=== PATIENT | male | born 1945 | race African-American/Black ===

== ENCOUNTER 2022-09-29 12:56 | Observation (INO) | payer MEDICARE, SELFPAY ==
[2022-09-29] VITALS (13 sets, daily range): BP systolic 111–155; BP diastolic 58–89; PULSE 82–94; RESP 13–18; TEMP 36.5; O2SAT 98–100; BMI 28.5
--- NOTE | ~2022-09-29 | CT_ITS ---
EXAMINATION: CT brain wo con DATE: 09/29/2022 15:54 INDICATION: Syncope. TECHNIQUE: Computed tomography (CT) of the head was performed without intravenous contrast. The mA wa s adjusted according to patient size. Iterative reconstruction technique was employed. The dose-lengt h product was 681.00 mGy-cm. COMPARISON: None FINDINGS: There is diffuse brain volume loss. There is no intracranial hemorrhage, acute infarction, or abnormal intracranial mass lesion. The ventricles are normal in size. There are likely changes of right ocular lens replacement surgery. There is mild mucosal thickening in the paranasal sinuses. The mastoid air cells are normal. IMPRESSION: 1. Normal aging brain. Reviewed, dictated and finalized at location A. ATIONS RESEARCH DIRECTOR IMPRESSION: 1. Normal aging brain.
--- NOTE | ~2022-09-29 | CT_ITS ---
EXAMINATION: CT abdomen pelvis w con DATE: 09/29/2022 14:46 INDICATION: Epigastric abdominal pain and tenderness. TECHNIQUE: Computed tomography (CT) of the abdomen and pelvis was performed with 100 mL Omnipaque 350 intravenous contrast. Automated exposure control and iterative reconstruction technique were employe d. The dose-length product was 493.73 mGy-cm. COMPARISON: CT abdomen and pelvis 12/17/2015 FINDINGS: The visualized portions of the lung bases demonstrate mild atelectasis and mild chronic parviz g disease. There are calcified pleural plaques on the right. The heart size is normal. There is a tra ce pericardial effusion. There is mild bilateral gynecomastia. There is a small sliding hiatal hernia . The liver and gallbladder are normal. There is a small residual spleen in left upper quadrant. 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 There is a 9 mm cystic lesion at the surgical margin w ithout change, likely benign. The adrenal glands are normal. There is cortical thinning of the kidney s. There is a 7 mm cyst of left kidney. There is a 2 mm stone in left kidney. There is a chronic meta llic foreign body in left perinephric space. The prostate is moderately enlarged. There are no dilate d loops of bowel. The appendix is normal. There are no pathologically enlarged lymph nodes. There is no free intraperitoneal fluid. Again seen is subcutaneous scarring in anterior abdominal wall. There is a chronic compression fracture of L2. IMPRESSION: 1. Small sliding hiatal hernia. Reviewed, dictated and finalized at location A. BOSS
--- NOTE | ~2022-09-29 | NM_ITS ---
EXAMINATION: NM bulmaro stress w perfusion DATE: 09/30/2022 13:21 INDICATION: Syncope TECHNIQUE: Rest images were obtained following intravenous administration of 9.7 mCi Tc99m tetrofosmi n (Myoview). The patient was infused intravenously with Lexiscan (Regadenoson). Then, 30 mCi Tc99m te trofosmin (Myoview) was administered intravenously, and stress images were obtained. Data was reconst ructed into short axis and horizontal and vertical long axis SPECT images. Gated SPECT images were al so obtained. COMPARISON: None. FINDINGS: There is no definite reversible or fixed perfusion abnormality to suggest ischemia or infar ction. There is normal left ventricular chamber size, wall motion and ejection fraction. Left ventr icular ejection fraction measures >70%. IMPRESSION: 1. Normal myocardial perfusion at rest and during stress. 2. Left ventricular ejection fraction measuring >70%. Reviewed, dictated and finalized at location A. SCOUT
--- NOTE | 2022-09-29 13:00 | ECG_ITS ---
Measurements Intervals [place] Rate: 84 P: 11 VT: 148 QRS: 18 QRSD: 132 T: -3 QT: 378 QTc: 449 Interpretive Statements SINUS RHYTHM INTRAVENTRICULAR CONDUCTION DELAY BORDERLINE ST-T WAVE ABNORMALITY- INF/LAT LEADS BASELINE ARTIFACT- I, III, AVR, AVL, AVF, V3-V5 BORDERLINE ECG NO PREVIOUS ECG AVAILABLE FOR COMPARISON Electronically Signed On 09-29-2022 14:39:20 OXYGEN SYSTEM TESTER by Renan Schuster D.O.
--- NOTE | 2022-09-29 13:27 | ED.SYNCOPE ---
HPI - Syncope General Chief Complaint: Syncope <MARY Prater Last Filed: 09/29/22 17:05> Stated Complaint: NEAR SYNCOPAL EVENT <MARY Prater Last Filed: 09/29/22 17:05> Time Seen by Provider: 09/29/22 13:01 <MARY Prater Last Filed: 09/29/22 17:05> History of Present Illness HPI narrative: 77-year-old male with a history of diabetes, hypertension, here for evaluation of abdominal pain, nausea over the past day. Patient states that he was at [facility] with his granddaughter, started to complain of a stomachache after eating a piece of chocolate candy. The granddaughter called EMS who evaluated the patient, reportedly his blood pressure was slightly low and he was given a bolus of fluids and brought to the ED. BP noted to be 115/64 upon arrival. He denies loss of consciousness, syncope, diarrhea, constipation, fevers or chills. He was in his usual state of health this morning. Spoke with Simran (patient's granddaughter who witnessed the event) on the phone. She has a very different story, states that her grandfather was feeling unwell while walking around [facility], stating that he needs to sit down. Patient sat down on the grocery belt, and then leaned backwards on the belt. Simran states that he was unresponsive for several seconds with a blank stare and stopped breathing . Patient denies this, states that he just did not eat enough this morning. A&O x 4. <MARY Prater Last Filed: 09/29/22 17:05> Related Data Allergies/Adverse Reactions: Allergies Allergy/AdvReac Type Severity Reaction Status Date / Time No Known Allergies Allergy Verified 02/28/22 08:12 <MARY Prater Last Filed: 09/29/22 17:05> Review of Systems Review of Systems: Gen: Denies fevers or chills Eyes: Denies eye pain or visual change ENT: Denies congestion Respiratory: Denies shortness of breath or cough CV: Denies chest pain or palpitations GI: reports abdominal pain, nausea, vomiting denies burning, urgency, frequency or hematuria Musculoskeletal: Denies back pain or muscle pain Neuro: Denies numbness, tingling, weakness or focal weakness Skin: Denies rash Except as documented, all other systems reviewed and negative <Tisha Mojica PA-C - Last Filed: 09/29/22 17:05> [facility] Past Medical History Medical History: Medical History BMI 29.0-29.9,adult Essential (primary) hypertension Mixed hyperlipidemia Tinea cruris Type 2 diabetes mellitus without complications <Tisha Mojica PA-C - Last Filed: 09/29/22 17:05> Family History Family History: Family History Mother Family history of coronary artery disease <Tisha Mojica PA-C - Last Filed: 09/29/22 17:05> Social History Social History: Social History Smoking status: Never smoker Alcohol intake: current <Tisha Mojica PA-C - Last Filed: 09/29/22 17:05> Exam Narrative: APPEARANCE: Well appearing, no pain in distress, well-nourished. Head: Normocephalic and atraumatic. EYES: PERRLA/EOMI, conjunctivae clear NOSE: No nasal drainage EARS: External ear normal in appearance THROAT: Oropharynx is clear. Mucous membranes are moist. NECK: Supple. No adenopathy, no masses. RESPIRATORY: Airway patent, respirations nonlabored. Clear to auscultation bilaterally, no rales, rhonchi, wheezing. CARDIOVASCULAR: Regular rate and rhythm without murmurs, rubs, or gallops. ABDOMINAL: Normoactive bowel sounds. Soft, nontender, nondistended. No rebound tenderness or guarding. MUSCULOSKELETAL: Extremities are warm and well-perfused. Moves all extremities well. No edema. NEURO: Normal speech. No focal neurologic deficits. SKIN: Skin is warm and dry. No rashes. PSYCHIATRIC: Normal
[2022-09-29] MEDS: FAMOTIDINE 20 MG/2 ML VIAL IV PUSH (13:59)
[2022-09-29] MEDS: ONDANSETRON INJ 4 MG/2 ML VIAL IV PUSH (13:59)
[2022-09-29 14:16] LABS: Basophils Percent Auto 0.3 % (0.2-1.2); Eosinophils Absolute Auto 0.1 K/mm3 (0-0.3); Eosinophils Percent Auto 0.5 % (0-4.4); Hematocrit 40.3 % (42.0-52.0); Hemoglobin 12.7 g/dL (14.0-18.0); Immature Granulocyte Absolute 0.07 K/mm3 (0.00-0.031); Immature Granulocyte Percent A 0.6 % (0-0.5); Lymphocytes Absolute Auto 2.91 K/mm3 (0.9-3.2); Lymphocytes Percent Auto 26.3 % (18.3-44.2); Mean Corpuscular HGB Conc 31.5 g/dl (32-36); Mean Corpuscular Hemoglobin 27.5 pg (26-34); Mean Corpuscular Volume 87.4 fl (80-100); Mean Platelet Volume 11.2 fl (7.4-10.4); Monocytes Absolute Auto 0.8 K/mm3 (0.1-0.6); Monocytes Percent Auto 7.4 % (2.6-8.5); Neutrophils Absolute Auto 7.2 K/mm3 (1.3-6.7); Neutrophils Percent Auto 64.9 % (45.5-73.1); Platelet Count Result 389 k/mm3 (150-375); Red Blood Count 4.61 M/mm3 (4.6-6.20); White Blood Count 11.1 K/mm3 (4.5-10.0)
[2022-09-29 14:27] LABS: Alanine Aminotransferase 18 U/L (6-50); Albumin Level 4.6 g/dL (3.5-5.1); Alkaline Phosphatase 114 U/L (38-126); Anion Gap 13 mmol/L (8-16); Aspartate Amino Transferase 19 U/L (17-59); Bilirubin,Total 0.3 mg/dL (0.2-1.3); Blood Urea Nitrogen 25 mg/dL (9-20); Calcium 9.3 mg/dL (8.4-10.2); Carbon Dioxide 23 mmol/L (22-30); Chloride 103 mmol/L (98-107); Estimated CRCL calculation 32 ml/min; Estimated Glomerular Filt Rate 48; Glucose 105 mg/dL (65-110); Lipase 148 U/L (23-300); Potassium 3.9 mmol/L (3.4-5.0); Sodium 139 mmol/L (137-145)
[2022-09-29] MEDS: SODIUM CHLORIDE 0.9% IV 1,000 ML 999 ML IV CONT (15:13)
[2022-09-29 16:54] LABS: Troponin I 0.098 ng/mL (0.000-0.034)
[2022-09-29 18:00] LABS: Troponin I 0.256 ng/mL (0.000-0.034)
[2022-09-29 18:20] LABS: Influenza A QL RT-PCR Negative (Negative); Influenza B QL RT-PCR Negative (Negative); SARS-CoV-2 RNA PCR Negative
--- NOTE | 2022-09-29 19:25 | PC.NURSE ---
This patient, Amadeo Oliva, was admitted to IMU Room 206-01. Patient/family oriented to hospital policies and general routines including ID bracelet, bed and alarms, visiting hours, pain management, procedures, bathroom and other care routines, personal items, smoking policy, room service/diet, and visiting hours. Information on how to activate the Rapid Response Team has been discussed. Patient/Family are encouraged to report perceived risks to care and to ask questions if they do not understand what they are told or what they should do.
[2022-09-29 20:04] LABS: Glucose Point of Care 361 mg/dl (65-105)
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
--- NOTE | 2022-09-29 21:43 | ADMGEN ---
This patient, Amadeo Oliva, was admitted to IMU Room 206-01 at 1925. Patient/family oriented to hospital policies and general routines including ID bracelet, bed and alarms, visiting hours, pain management, procedures, bathroom and other care routines, personal items, smoking policy, room service/diet, and visiting hours. Information on how to activate the Rapid Response Team has been discussed. Patient/Family are encouraged to report perceived risks to care and to ask questions if they do not understand what they are told or what they should do.
[2022-09-30] VITALS (8 sets, daily range): BP systolic 111–121; BP diastolic 60–81; PULSE 18–82; RESP 14–18; TEMP 36–36.6; O2SAT 98–100
--- NOTE | 2022-09-30 | ECHO_ITS ---
Patient Info Name: Amadeo Oliva Age: 77 years : 1945 Gender: Male Ht: 68 in Wt: 187 lbs BSA: 2.04 m2 HR: 74 bpm BP: 116 / 62 mmHg Technical Quality: Good Exam Date: 09/30/2022 9:19 AM Exam Location: [facility] Patient Status: Outpatient Admit Date: 09/29/2022 Staff Ordering Physician: Suha English NP Enologist: Nahun Rosen RDCS, RT Attending Provider: Elpidio Spangler MD Referring Physician: Tameka DRAKE; Exam Type: CA echo doppler color flow Study Info Indications R55 - Syncope and collapse Complete two-dimensional, color flow and Doppler transthoracic echocardiogram is performed. Strain analysis performed. Summary 1. Complete two-dimensional, color flow and Doppler transthoracic echocardiogram is performed. 2. Left ventricular chamber dimension is normal. 3. Left ventricular systolic function is normal, estimated at 65-70%. 4. There is moderate concentric increased left ventricular wall thickness. 5. The left ventricular diastolic function is grade I diastolic dysfunction. 6. E/e' 9 is minimally elevated. 7. Global longitudinal strain is abnormal at -14.1%. 8. There is trace mitral valve regurgitation. Left Ventricle E/e' 9 is minimally elevated. Global longitudinal strain is abnormal at -14.1%. Left ventricular chamber dimension is normal. Left ventricular systolic function is normal, estimated at 65-70%. There is moderate concentric increased left ventricular wall thickness. The left ventricular diastolic function is grade I diastolic dysfunction. Right Ventricle Right ventricular systolic function is normal and with normal TAPSE 2.8 cm. Right ventricular chamber dimension is normal. Left Atria Left atrial chamber dimension is normal. Right Atria Right atrial chamber dimension is normal. Aortic Valve The aortic valve is trileaflet. There is no aortic valve stenosis. There is no aortic valve regurgitation. Pulmonic Valve There is no pulmonic regurgitation. Mitral Valve There is no mitral valve stenosis. There is trace mitral valve regurgitation. Tricuspid Valve There is no tricuspid valve regurgitation. Pericardium/Pleural There is no pericardial effusion. Inferior Vena Cava Normal inferior vena cava with >50% collapse upon inspiration consistent with normal right atrial pressure, 5 mmHg. Aorta The aortic root size at the sinus of Valsalva is normal. Left Ventricular Outflow Tract Name Value Normal LVOT 2D LVOT Diameter 2.0 cm LVOT Doppler LVOT Peak Gradient 4 mmHg LVOT Mean Gradient 2 mmHg LVOT VTI 19 cm LVOT VTI/AV VTI Ratio 0.7 LVOT Stroke Volume 59 ml Mitral Valve Name Value Normal MV Doppler MV Decel Jasper 289 cm/s2
[2022-09-30 00:38] LABS: Troponin I 0.374 ng/mL (0.000-0.034)
[2022-09-30 05:13] LABS: Basophils Percent Auto 0.4 % (0.2-1.2); Eosinophils Absolute Auto 0.1 K/mm3 (0-0.3); Hematocrit 34.7 % (42.0-52.0); Hemoglobin 11.4 g/dL (14.0-18.0); Immature Granulocyte Absolute 0.02 K/mm3 (0.00-0.031); Immature Granulocyte Percent A 0.2 % (0-0.5); Lymphocytes Absolute Auto 4.05 K/mm3 (0.9-3.2); Lymphocytes Percent Auto 48.6 % (18.3-44.2); Mean Corpuscular HGB Conc 32.9 g/dl (32-36); Mean Corpuscular Hemoglobin 27.9 pg (26-34); Mean Corpuscular Volume 84.8 fl (80-100); Mean Platelet Volume 11.5 fl (7.4-10.4); Monocytes Absolute Auto 0.6 K/mm3 (0.1-0.6); Monocytes Percent Auto 7.7 % (2.6-8.5); Neutrophils Absolute Auto 3.5 K/mm3 (1.3-6.7); Neutrophils Percent Auto 42.1 % (45.5-73.1); Platelet Count Result 373 k/mm3 (150-375); Red Blood Count 4.09 M/mm3 (4.6-6.20); Red Cell Distribution Width 14.1 % (11.5-14.5); White Blood Count 8.3 K/mm3 (4.5-10.0)
[2022-09-30 05:19] LABS: Lactic Acid Reflex 2.1 mmol/L (0.7-2.0)
[2022-09-30 05:26] LABS: Hemoglobin A1C > 14.0 % (<5.7)
[2022-09-30 05:28] LABS: Chloride 101 mmol/L (98-107)
[2022-09-30 05:36] LABS: Alanine Aminotransferase 14 U/L (6-50); Albumin Level 3.6 g/dL (3.5-5.1); Alkaline Phosphatase 89 U/L (38-126); Anion Gap 7 mmol/L (8-16); Aspartate Amino Transferase 18 U/L (17-59); Bilirubin,Total 0.4 mg/dL (0.2-1.3); Blood Urea Nitrogen 23 mg/dL (9-20); CRP 0.6 mg/dL (<1.0); Calcium 8.3 mg/dL (8.4-10.2); Carbon Dioxide 27 mmol/L (22-30); Estimated CRCL calculation 36 ml/min; Estimated Glomerular Filt Rate 55; Glucose 197 mg/dL (65-110); Potassium 4.1 mmol/L (3.4-5.0); Sodium 135 mmol/L (137-145)
[2022-09-30 08:03] LABS: Reflex Lactic Acid Yes or No Add Lactic
[2022-09-30 08:23] LABS: Glucose Point of Care 222 mg/dl (65-105)
[2022-09-30] MEDS: ROSUVASTATIN 10 MG TABLET PO (09:16)
[2022-09-30] MEDS: FUROSEMIDE 20 MG TABLET PO (09:16)
[2022-09-30 09:42] LABS: Lactic Acid 1.7 mmol/L (0.7-2.0)
[2022-09-30 13:24] LABS: Glucose Point of Care 238 mg/dl (65-105)
--- NOTE | 2022-09-30 15:32 | PC.NURSE ---
On 09/30/22, the student, [Bola Thomas], provided care and completed [facility] documentation on this patient. I have reviewed the student's documentation and agree with the findings.
[2022-09-30] MEDS: INSULIN ASPART (*BKC) 100 UNITS/ML SUB-Q (16:42)
[2022-09-30 16:45] LABS: Glucose Point of Care 216 mg/dl (65-105)
--- NOTE | 2022-09-30 17:34 | PM.DS ---
DS: Admitting Diagnosis Discharge Date 09/30/22 Admitting Diagnosis Abdominal pain DS: Discharge Diagnosis Discharge Diagnosis (1) Syncope: Code(s): R55 - Syncope and collapse Status: Acute (2) Elevated troponin: Code(s): R77.8 - Other specified abnormalities of plasma proteins Status: Acute (3) Type 2 diabetes mellitus without complications: Code(s): E11.9 - Type 2 diabetes mellitus without complications Status: Acute (4) CKD (chronic kidney disease): Code(s): N18.9 - Chronic kidney disease, unspecified Status: Acute (5) Essential (primary) hypertension: Code(s): I10 - Essential (primary) hypertension Status: Acute (6) Mixed hyperlipidemia: Code(s): E78.2 - Mixed hyperlipidemia Status: Acute (7) Glaucoma: Code(s): H40.9 - Unspecified glaucoma Status: Acute DS: Summary Hospital Course Reason for hospitalization: 77yo male with DM here for abdominal pain and possible syncopal episode. Please see H&P for details. Hospital Course: Patient presents to the emergency room by EMS for abdominal pain, nausea and possible syncopal episode. Patient denies syncopal episode. He states he remembers the full event including EMS arrival. Family member who was present stated the patient became unresponsive for several seconds with a blank stare and ?stopped breathing?. EKG showed normal sinus rhythm with a interventricular conduction delay. Echocardiogram showed EF of 65-70% and grade [address] of the abdomen and pelvis showed the visualized portion of the lung bases showed atelectasis, mild chronic lung disease and calcified pleural plaques on the right. Gynecomastia noted. 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 Prostate was mildly enlarged. Overall no acute findings. Head CT showed no acute findings. White count was slightly elevated but on repeat normalized. Platelet count remained normal. Hemoglobin was 12.7. Creatinine was 1.7 on admission with a baseline creatinine drawn about a year ago of 1.6. Repeat creatinine trended downward. His A1c was greater than 14. His lactic acid was slightly elevated 2.1 but on repeat this normalized. His troponin was elevated to 0.37. TSH was normal. Influenza and COVID swabs were negative. Patient underwent Lexiscan stress test which showed no ischemic ST changes. Nuclear images showed normal myocardial perfusion at rest and during stress with EF greater than 70%. Patient is eating and tolerating well. He has no complaints today. He is agreeable for discharge. Long discussion with him about eating 3 meals a day. He states he goes days without eating properly. He also drinks sugar sodas regularly. He states that he was recently in April and this is 1 reason why he is not taking care of himself. He has blindness. He lives with his daughter who does check his sugars and prepares his meals. His daughter was called with patient's permission and hospital course and follow-up plan were discussed. Patient overall did well and was able be discharged home on 09/30/2022 Status at Discharge Cognitive/behavioral status at discharge: stable Time Spent with Patient Time attestation: Total time spent providing and/or coordinating discharge services: 35 minutes Time spent: Greater than 30 minutes Exam Narrative: AF 97.3 121/60 71 14 100% ra Gen - NARD lying semi-recumbent in bed Chest - CTA bilaterally, nml RR CV - RRR S1/S2. Tele showing Abd - Soft, NT/ND, Positive BS Ext - No pedal edema Neuro - Alert and appropriate. blind Psych - Nml mood and affect Skin - Warm and dry DS: Data Data Completed and Pending Labs on day of discharge: Labs from last 24 hours 09/30/22 09/30/22 09/30/22 16:41 13:19 09:26 WBC RBC Hgb Hct MCV MCH MCHC RDW Plt Count MPV Immature Gran % (Auto) Neut % (Auto) Lymph
--- NOTE | 2022-09-30 23:41 | EST_ITS ---
Patient Info Name: Amadeo Oliva Age: 77 years : 1945 Gender: Male Ht: 68 in Wt: 187 lbs BSA: 2.04 m2 HR: 77 bpm BP: 130 / 69 mmHg Heart Rhythm: Sinus Rhythm Exam Date: 09/30/2022 12:05 PM Exam Location: [facility] Stress Patient Status: Outpatient Admit Date: 09/29/2022 Staff Ordering Physician: Suha English NP Attending Provider: Elpidio Spangler MD Exercise Technologist: Cheryl Nam CT Exam Type: CA stress bulmaro w NM Study Info Indications R55 - Syncope and collapse A regadenoson stress test was performed. Summary 1. 1. Negative lexiscan stress test for ischemic ST changes by ECG criteria. 2. 2. Stable hemodynamics throughout the test. 3. 3. Nuclear scan to follow and will be reported separately. Please correlate with it. 4. 4. Patient informed of the above results. Protocol: Lexiscan Stress ECG Details Stage: REST Duration (min): 1 min : 21 sec HR (bpm): 81 SBP (mmHg): --- DBP (mmHg): --- Stage: REST Duration (min): 8 min : 23 sec HR (bpm): 81 SBP (mmHg): --- DBP (mmHg): --- Stage: STAGE 1 Duration (min): 1 min : 0 sec HR (bpm): 94 SBP (mmHg): 127 DBP (mmHg): 68 Stage: RECOVERY Duration (min): 1 min : 0 sec HR (bpm): 98 SBP (mmHg): 127 DBP (mmHg): 68 Stage: RECOVERY Duration (min): 2 min : 0 sec HR (bpm): 93 SBP (mmHg): 127 DBP (mmHg): 68 Stage: RECOVERY Duration (min): 3 min : 0 sec HR (bpm): 94 SBP (mmHg): 88 DBP (mmHg): 62 Stage: RECOVERY Duration (min): 3 min : 3 sec HR (bpm): 93 SBP (mmHg): 88 DBP (mmHg): 62 Rest HR: 81 bpm Peak HR: 100 bpm Rest Sys BP: 120 mmHg Peak Sys BP: 127 mmHg Max Pred HR: 143 bpm % Max Pred HR: 70 % Target HR: 122 bpm Max RPP: 12,700 bpm*mmHg Termination Reason: Completed protocol Cardiac Symptoms: None Total Time: 1 min : 0 sec Rest Vail BP: 70 mmHg Peak Vail BP: 68 mmHg Total Dose: 0.4 mg Resting ECG Sinus rhythm, anteroseptal infarct, age indeterminate. Stress ECG No ST changes. Arrhythmias None. Report Signatures
== END 2022-09-30 18:49 | disposition home or self-care (01) ==
LOC: ANHED 17:06 → ANHIMU 19:24
PROVIDERS: Nurse Practitioner; Physician Assistant; Admitting Provider Internal Medicine; Emergency Provider Emergency Medicine; PCP Family Medicine; Visit Provider Internal Medicine
DX: R55 Syncope and collapse (principal); R77.8 Other specified abnormalities of plasma proteins; R10.9 Unspecified abdominal pain; K44.9 Diaphragmatic hernia without obstruction or gangrene; I45.4 Nonspecific intraventricular block; H40.9 Unspecified glaucoma; H54.8 Legal blindness, as defined in USA; I12.9 Hypertensive chronic kidney disease with stage 1 through stage 4 chronic kidney disease, or unspecified chronic kidney disease; E11.22 Type 2 diabetes mellitus with diabetic chronic kidney disease; N18.9 Chronic kidney disease, unspecified; I51.89 Other ill-defined heart diseases; R11.0 Nausea; E78.2 Mixed hyperlipidemia; Z20.822 Contact with and (suspected) exposure to COVID-19; F10.90 Alcohol use, unspecified, uncomplicated; Z87.828 Personal history of other (healed) physical injury and trauma; Z79.84 Long term (current) use of oral hypoglycemic drugs; Z79.4 Long term (current) use of insulin; Z79.899 Other long term (current) drug therapy; Z82.49 Family history of ischemic heart disease and other diseases of the circulatory system
CPT/HCPCS: 36415; 70450; 74177; 78452; 80053; 82948; 83036; 83605; 83690; 83735; 84443; 84484; 85025; 86140; 87636; 93005; 93017; 93306; 96361; 96374; 96375; 99285; A9270; A9502; G0378; J1815; J2405; J2785; J7030; Q9967

== ENCOUNTER 2023-08-30 02:22 | Day surgery (SDC) | payer MEDICARE, SELFPAY ==
[2023-08-14 11:23] VITALS: BMI 30.2
--- NOTE | 2023-08-28 08:30 | SUR.PREOP ---
Patient called regarding upcoming procedure. Message left on patient's POA's voicemail Winsome Martinez regarding appointment times for patient.
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
[2023-08-30 06:47] VITALS: BP 141/77; PULSE 84; RESP 18; TEMP 36.6; O2SAT 98; BMI 30.7
[2023-08-30 07:01] LABS: Glucose Point of Care 173 mg/dl (65-105)
[2023-08-30] MEDS: LACTATED RINGERS 1,000 ML 150 ML IV CONT (07:17)
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
[2023-08-30 07:56] VITALS: BP 116/70; PULSE 83; RESP 14; O2SAT 94
[2023-08-30 08:06] VITALS: BP 127/80; PULSE 78; RESP 24; O2SAT 99
[2023-08-30 08:16] VITALS: BP 132/71; PULSE 78; RESP 21; O2SAT 100
== END 2023-08-30 08:30 | disposition home or self-care (01) ==
PROVIDERS: PCP Family Medicine; Visit Provider Internal Medicine Gastroenterology
PROC: 0DJD8ZZ Inspection of Lower Intestinal Tract, Via Natural or Artificial Opening Endoscopic (ICD-10-PCS; CPT 45378; principal; 2023-08-30 08:00)
DX: Z12.11 Encounter for screening for malignant neoplasm of colon (principal); I12.9 Hypertensive chronic kidney disease with stage 1 through stage 4 chronic kidney disease, or unspecified chronic kidney disease; E11.22 Type 2 diabetes mellitus with diabetic chronic kidney disease; N18.9 Chronic kidney disease, unspecified; H40.9 Unspecified glaucoma; E78.2 Mixed hyperlipidemia; Z79.84 Long term (current) use of oral hypoglycemic drugs; Z79.4 Long term (current) use of insulin
CPT/HCPCS: G0121; 82948; J2704; J7120

== ENCOUNTER 2024-05-16 09:43 | Outpatient (CLI) | payer MEDICARE, SELFPAY ==
--- NOTE | ~2024-05-16 | XR_ITS ---
EXAMINATION: XR cervical spine min 6V DATE: 05/16/2024 10:03 INDICATION: Posterior neck pain. TECHNIQUE: 6 views of cervical spine including flexion and extension views were obtained. COMPARISON: None. FINDINGS: There is kyphosis of cervical spine. The spine is hypomobile with flexion and extension. Ve rtebral body heights are normal. There is mildly decreased disc height at C2-C3, severely decreased d isc height at C3-C4, mildly decreased disc height at C4-C5, and severely decreased disc height at C5- C6 and C6-C7. There is multilevel uncovertebral joint osteoarthritis, severe bilaterally at C5-C6 and C6-C7. There is multilevel facet joint osteoarthritis, severe at C7-T1. There is no central canal st enosis or prevertebral soft tissue swelling. IMPRESSION: 1. Severe cervical spondylosis. Reviewed, dictated and finalized at location A.
== END 2024-05-16 09:44 | disposition home or self-care (01) ==
LOC: MICIMG 09:45
PROVIDERS: PCP Family Medicine; Visit Provider Family Medicine
DX: M47.892 Other spondylosis, cervical region (principal)
CPT/HCPCS: 72052

== ENCOUNTER 2024-06-13 11:44 | Outpatient (CLI) | payer MEDICARE, SELFPAY ==
[2024-06-13 12:40] LABS: Alanine Aminotransferase 16 U/L (6-50); Aspartate Amino Transferase 30 U/L (17-59)
== END 2024-06-13 11:45 | disposition home or self-care (01) ==
LOC: ANHLAB 11:47
PROVIDERS: PCP Family Medicine; Visit Provider Podiatrist Foot & Ankle Surgery
DX: B35.1 Tinea unguium (principal)
CPT/HCPCS: 36415; 84450; 84460

== ENCOUNTER 2025-03-27 08:33 | Outpatient (CLI) | payer MEDICARE, SELFPAY ==
--- NOTE | ~2025-03-27 | XR_ITS ---
AP and lateral views of the left femur Clinical History: Congenital malformation Findings: No acute fracture or dislocation is seen. There is a large bony excrescence arising from th e femoral midshaft. This could reflect a large osteochondroma. Osseous alignment is anatomic. Visuali zed joint spaces are grossly preserved. Soft tissues are unremarkable. Impression: Large bony excrescence from the femoral shaft which could reflect large osteochondroma. Lesion measur es approximately 15 cm in length. Consider cross-sectional imaging to better confirm the diagnosis, a s indicated. Reviewed, dictated and finalized at location M. Impression: Large bony excrescence from the femoral shaft which could reflect large osteoch ondroma. Lesion measures approximately 15 cm in length. Consider cross-sectiona l imaging to better confirm the diagnosis, as indicated.
== END 2025-03-27 08:34 | disposition home or self-care (01) ==
LOC: MICIMG 08:34
PROVIDERS: PCP Family Medicine; Visit Provider Family Medicine
DX: Q79.9 Congenital malformation of musculoskeletal system, unspecified (principal)
CPT/HCPCS: 73552